=== PATIENT | male | born 2000 | race African-American/Black ===

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

== ENCOUNTER 2023-12-29 20:16 | Emergency (ER) | payer OTHER ==
[2023-12-29 20:47] LABS: Bilirubin Negative (Negative); Blood, Urine Negative (Negative); Clarity Clear (Clear); Glucose, Urine (Dipstick) Negative (Negative); Ketone, Urine Negative (Negative); Leukocyte Negative (Negative); Nitrite Negative (Negative); Protein, Urine (Dipstick) Negative (Neg-Trace); Urobilinogen 0.2 mg/dL (Less than 2); pH, Urine 6.5 (5.0-9.0)
[2023-12-29 20:48] LABS: RBC/HPF None Seen HPF (0-3)
[2023-12-29 20:49] LABS: CAUTI Indications for Culture Dysuria,urgency,freq; Squamous Epithelial 0-3 HPF (0-3); Trichomonas/HPF None Seen HPF (None Seen); Urine Culture Reflex No No; WBC/HPF None Seen HPF (0-3)
[2023-12-29] MEDS ORDERED: Doxycycline 100 MG CAP ONE (20:51)
[2023-12-29] MEDS ORDERED: Lidocaine 1% PF 5 ML VIAL ONE (20:51)
[2023-12-29] MEDS ORDERED: cefTRIAXone (ROCEPHIN) 500 MG VIAL ONE (20:51)
[2023-12-30 14:39] LABS: Chlam.trachomatis by PCR,Urine Not Detected (NotDetected); GC N.gonorrhoeae PCR,UrineVOID Not Detected (NotDetected)
== END 2023-12-29 21:20 | disposition home or self-care (01) ==
LOC: MADERS 20:16
DX: Z20.2 Contact with and (suspected) exposure to infections with a predominantly sexual mode of transmission (principal); F12.10 Cannabis abuse, uncomplicated; J30.2 Other seasonal allergic rhinitis
CPT/HCPCS: 81001; 87086; 87491; 87591; 96372; 99283; J0696

== ENCOUNTER 2024-03-27 19:02 | Emergency (ER) | payer OTHER ==
[2024-03-27] MEDS ORDERED: Ibuprofen 800 MG TAB ONE (19:25)
== END 2024-03-27 19:29 | disposition home or self-care (01) ==
LOC: MADERS 19:02
DX: S39.011A Strain of muscle, fascia and tendon of abdomen, initial encounter (principal); X50.0XXA Overexertion from strenuous movement or load, initial encounter
CPT/HCPCS: 99283